=== PATIENT | female | born 2000 | race Caucasian/White ===

== ENCOUNTER 2020-01-02 13:27 | Observation (INO) | payer MEDICARE, MEDICAID, SELFPAY ==
[2020-01-02 13:46] VITALS: BP 114/78; PULSE 109
[2020-01-02 14:00] VITALS: BMI 26.2
[2020-01-02 14:01] VITALS: BP 117/77; PULSE 111
--- NOTE | 2020-01-02 15:03 | OBADM ---
This patient, Soni Alvarez, admitted to the OB room Labor/Delivery/Recovery 103 for observation. Patient/family oriented to hospital policies and general routines including ID bracelet, bed and alarms, visiting hours, pain management, procedures, bathroom and other care routines, personal items, smoking policy, room service/diet, and visiting hours. Patient/Family are encouraged to report perceived risks to care and to ask questions if they do not understand what they are told or what they should do.
--- NOTE | 2020-01-09 18:33 | PM.OBTRLD ---
OB - Triage/Final Diagnosis Visit Information Comments/Additional reasons for admission: FHT reassuring, rupture of membranes ruled out. pt discharged home in stable condition Final Diagnosis (1) Vaginal discharge during in third trimester: Code(s): O26.893 - Other specified related conditions, third trimester; N89.8 - Other specified noninflammatory disorders of vagina Status: Acute
== END 2020-01-02 14:50 | disposition home or self-care (01) ==
PROVIDERS: Admitting Provider Obstetrics & Gynecology; PCP Physician Assistant; Visit Provider Obstetrics & Gynecology
DX: O26.893 Other specified pregnancy related conditions, third trimester (principal); N89.8 Other specified noninflammatory disorders of vagina; Z3A.37 37 weeks gestation of pregnancy
CPT/HCPCS: 84112; G0378; G0379

== ENCOUNTER 2020-01-10 17:52 | Inpatient (IN) | payer MEDICARE, MEDICAID, SELFPAY ==
[2020-01-10] VITALS (21 sets, daily range): BP systolic 81–128; BP diastolic 56–91; PULSE 75–109; TEMP 37.3
--- NOTE | 2020-01-10 18:26 | LDADM ---
This patient, Soni Alvarez, was admitted to Labor/Delivery/Recovery 108 on 01/10/20 at 17:52. Plans for labor, pain management and were discussed with patient. Patient/family oriented to hospital policies and general routines including ID bracelet, bed and alarms, visiting hours, pain management, procedures, bathroom and other care routines, personal items, smoking policy, room service/diet and guest tray routines, infant security routines, and visiting hours. Patient/Family are encouraged to report perceived risks to care and to ask questions if they do not understand what they are told or what they should do. See OBIX for further documentation.
--- NOTE | 2020-01-10 19:06 | PM.IMHP ---
H&P: HPI History of Present Illness Chief complaint: Induction of Labor Narrative: Soni Alvarez is a 19yo @ 39.0wks who presents for elective induction of labor. Patients prior delivery was of a male weighing 8lb 14oz. She reports continued contractions for the last week. She reports good movement. No vaginal bleeding or leakage of fluid. Her is complicated by asthma, Rh negative, and bipolar disorder on zoloft. Review of Systems Constitutional: Constitutional: Denies body ache(s), Denies chills and Denies fatigue Cardiovascular: Cardiovascular: Denies chest pain Respiratory: Respiratory: Denies cough and Denies dyspnea Gastrointestinal: Gastrointestinal: Denies nausea and Denies vomiting Genitourinary: Genitourinary: Reports pelvic pain Musculoskeletal: Musculoskeletal: Reports back pain and Denies arthralgias Neurologic: Denies headache(s) Psychiatric: Psychiatric: Reports no additional psychiatric complaints [facility] Family History Family History Mother Epilepsy Heart murmur Atrial fibrillation Cerebrovascular accident Father Lung cancer Other Asthma Development delay Social History Social History Smoking status: Never smoker Second hand tobacco smoke exposure: No Substance use: never Gender identity (if verbalized by the patient): Female Spiritual care concerns: No Meds Home Medications and Allergies Home Medications Medication Instructions Recorded Confirmed Type albuterol sulfate [Ventolin HFA] INHALATION PRN 01/10/20 History Allergies Allergy/AdvReac Type Severity Reaction Status Date / Time raspberry AdvReac Rash Verified 01/10/20 19:13 Vital Signs Vital Signs - 24 hr 01/10/20 19:03 01/10/20 19:05 Temperature 37.3 C Pulse Rate 89 Blood Pressure 111/73 Exam Const: General: comfortable and no acute distress Resp: Effort & Inspection: normal respiratory effort Cardio: Rate: regular rate GI: GI Palp: Yes Soft to palpation : Other: Cervix: 2/50/-3 Membranes: intact FHT: 150's/mod hanna/ + accels/ no decels - category 1 [place]: ctx's q 3-5min Psych: Mental Status: mental status grossly normal Affect: normal affect Assessment and Plan Assessment and plan (1) : Code(s): Z34.90 - Encounter for supervision of normal , unspecified, unspecified trimester Status: Acute Assessment and Plan: - Admit to L&D for elective induction of labor - heart tones reassuring; continuous monitoring - Will start pitocin augmentation per protocol - Anesthesia PRN pain - GBS negative; ppx not indicated
[2020-01-10 19:14] LABS: Basophils Percent Auto 0.2 % (0.2-1.2); Eosinophils Percent Auto 0.3 % (0-4.4); Hematocrit 38.4 % (37.0-47.0); Hemoglobin 12.5 g/dL (12.0-15.0); Immature Granulocyte Absolute 0.02 K/mm3 (0.00-0.031); Immature Granulocyte Percent A 0.3 % (0-0.5); Lymphocytes Absolute Auto 2.26 K/mm3 (0.9-3.2); Lymphocytes Percent Auto 37.6 % (18.3-44.2); Mean Corpuscular HGB Conc 32.6 g/dl (32-36); Mean Corpuscular Hemoglobin 27.4 pg (26-34); Mean Platelet Volume 12.2 fl (7.4-10.4); Monocytes Absolute Auto 0.3 K/mm3 (0.1-0.6); Monocytes Percent Auto 5.3 % (2.6-8.5); Neutrophils Absolute Auto 3.4 K/mm3 (1.3-6.7); Neutrophils Percent Auto 56.3 % (45.5-73.1); Platelet Count Result 149 k/mm3 (150-375); Red Blood Count 4.57 M/mm3 (4.2-5.4)
[2020-01-10] MEDS: LACTATED RINGERS 1,000 ML 125 ML IV CONT (19:28)
[2020-01-10] MEDS: OXYTOCIN 30 UNITS/NS 500 ML 30 UNITS/500 ML BAG IV CONT (19:28)
[2020-01-10 20:06] LABS: HIV 1/2 Ab P24 Ag Result Negative (Negative)
[2020-01-11] VITALS (43 sets, daily range): BP systolic 89–130; BP diastolic 56–84; PULSE 56–101; RESP 15–16; TEMP 36.7–37.1; O2SAT 96–100
[2020-01-11] MEDS: ONDANSETRON INJ 4 MG/2 ML VIAL IV PUSH (02:24)
[2020-01-11] MEDS: LACTATED RINGERS 1,000 ML 125 ML IV CONT (05:48)
--- NOTE | 2020-01-11 06:34 | PC.NURSE ---
0430- pt came in c/o contractions every 5-7 minutes. pt states that she is scheduled for a repeat c/s 01/25/20. cervical exam , membranes intact. pt states that since she has gotten here the contractions have subsided.
--- NOTE | 2020-01-11 06:38 | PM.OBPRVD ---
OB - Delivery Note Procedure Delivery date: 01/11/20 Procedure: Soni progressed to complete dilation and began pushing. She delivered head over intact perineum. shoulder and body delivered without complications. She delivered a female , weight 7lb 8oz, 20in long, apgars 9/9. The baby was immediately placed skin to skin and stimulated. The cord was clamped and cut. The baby had spontaneous cry. A segment of the cord was collected for cord gases. The remaining cord blood was collected for typing. The placenta delivered without complications with gentle traction on the cord with pitocin running. The fundus was then palpated to be firm and minimal bleeding was noted. The cervix, vagina, and perineum were inspected and no lacerations were noted. Sponge, lap, and instrument counts were correct at the end of the delivery. Mom and baby were left bonding in the delivery suite. events: Rh Incompatibility Intrapartal events: None Induction method: per pitocin protocol Delivery monitor: external FHT and external uterine Route of delivery: Laceration description: None Specimen: No Estimated blood loss (mL): 150 Anesthesia type: None Disposition: floor Baby Date of : 01/11/20 Time of : 06:24 Weeks of gestation at delivery: 39 Weight (pounds): 7 Weight (ounces): 8 presentation: vertex Placenta delivery description: Expressed cord vessel description: Nuchal Cord, Loose and Around Body x1 score one minute: 9 score five minutes: 9
[2020-01-11] MEDS: OXYTOCIN 30 UNITS/NS 500 ML 30 UNITS/500 ML BAG 125 UNITS IV CONT (06:54)
[2020-01-11] MEDS: IBUPROFEN 600 MG TABLET PO (07:52)
[2020-01-11] MEDS: WITCH HAZEL 40 PADS 1 PAD TOPICAL (07:53)
[2020-01-11] MEDS: BENZOCAINE 20% AER SPR (*SP) 56 GM CAN 1 SPRAY TOPICAL (07:53)
[2020-01-11] MEDS: IBUPROFEN SUSPENSION 200 MG/10 ML UDC 600 MG PO ×2 (08:37→15:30)
[2020-01-11 09:29] LABS: Rapid Plasma Reagin Non-Reactive (NonReactive)
--- NOTE | 2020-01-11 11:15 | PC.NURSE ---
Mother requests assist with . Mother states she bottle fed first child and wishes to breast and bottle feed this . Mother bottle fed first feeding. Reviewed feeding cues, frequencies, duration of feedings, feeding elimination flow sheet, and signs of adequate intake. Demonstrated stimulation techniques to wake for feeding. Assisted with to breast. Reviewed positioning/alignment in cross cradle, holding breast in U hold and guided asymmetrical latch on. Discussed rational for each. Several attempts before infant was able to latch correctly. nursed eagerly, with steady draws and frequent swallowing noted. Reviewed signs of a correct latch, effective nursing and suck swallow ratio. Advised to stimulate infant with long pausing noted to keep awake and nursing effectively for increased intake and mother's comfort. was able to maintain latch without discomfort to mother. Nipple care reviewed. Instructed mother to call out for RN assistance if she is unable to latch infant for feeding or she has discomfort with nursing. Instructed feeding should be initiated three hours from start of last feeding or if feeding cues are noted before. Mother voiced understanding of information shared.
--- NOTE | 2020-01-11 12:47 | PC.NURSE ---
0907-Patient transferred to post room #291 via wheelchair. Support person present. Oriented to unit, room, information board, rooming in, admission packet and security measures. Patient verbalizes understanding.
--- NOTE | 2020-01-11 14:09 | PCCCNOTE ---
Care Coordination Note: Pt. referred to SS for possible financial needs and intellectual disability. Met with pt. and her mother at bedside. Pt. plans to return home with her mother and three year old son. FOB and mother are not together anymore. Pt. reports they have some clothes, diapers, bassinet, and carseat for baby. They inquired about a breast pump and RN will check with travel sales consultant. Provided pt. and grandmother with list of community resources and that [employer] can also sometimes help with clothing. Pt. is setup with [facility]. Pt. reports ability to care for infant and has been raising son. Grandmother plans to be there to help as needed. Pt.'s sister will pick them up when discharged and pt. thinks it will be tomorrow evening. No further SS needs identified.
--- NOTE | 2020-01-11 14:25 | PC.NURSE ---
Mother called out for assist with feeding. Demonstrated stimulation techniques to wake for feeding. Assisted with to breast. Reviewed positioning/alignment, holding breast and asymmetrical latch on. Infant was able to latch correctly, with max. assistance. Infant nursed eagerly, with steady draws and frequent swallowing noted. Reviewed signs of a correct latch, effective nursing and suck swallow ratio. was able to maintain latch without discomfort to mother. Nipple care reviewed. Advised to stimulate to keep awake and nursing effectively. Instructed mother to call out for RN assistance if she is unable to latch infant for feeding or she has discomfort with nursing. Instructed feeding should be initiated three hours from start of last feeding or if feeding cues are noted before. Mother voiced understanding of information shared.
[2020-01-12 05:29] LABS: Hematocrit 36.3 % (37.0-47.0); Hemoglobin 11.7 g/dL (12.0-15.0)
[2020-01-12] MEDS: IBUPROFEN SUSPENSION 200 MG/10 ML UDC 600 MG PO (07:40)
[2020-01-12] MEDS: TETANUS,DIPHTHERIA,AC PERTUSSIS ADULT 0.5 ML (ADACEL) IM (07:59)
[2020-01-12 08:20] VITALS: BP 103/64; PULSE 57; RESP 18; TEMP 36.9; O2SAT 99
--- NOTE | 2020-01-12 08:22 | PM.OBPNVD ---
OB - PN: Subj Subjective Date/time seen: 01/12/20 08:22 Soni is a 19yo now P2002 s/p uncomplicated NVSD on 01/11/20 at 39.1wks. Today, she is doing well. Pain is controlled. Bleeding is decreasing. Tolerating regular diet, no nausea or vomiting. Normal bladder and bowel function. She reports that her mood is good; does not want to take the prescribed antidepressant. Tanja is doing well. She desires to be discharged home today. OB - PN: Obj Data Labs CBC & Chem 7: 01/12/20 04:41 Labs: Laboratory Results - last 24 hr 01/10/20 01/12/20 01/12/20 19:04 04:41 04:41 Hgb 11.7 L Hct 36.3 L RPR Non-reactive Blood Type A Negative Antibody Screen Negative Screen Negative Baby's Blood Type O pos Baby's МАРИНА Negative Doses of RhIg Required 1 OB - PN A/P Plan day: 1 Plan: routine care and discharge home Comments: - meeting all milestones - pt desires to be discharged home, ok to go home today - pelvic rest. fever, bleeding, HTN return precautions. take medications as prescribed - Recommend she takes Zoloft (previously prescribed by Dr. Sanchez); pts mother will keep a close eye on patient and call if concerned. - F/u in 4 weeks Time Spent With Patient Time: Total time spent is greater than 50% in coordination of care (as documented) at patient's floor/unit and/or counseling patient: Review of Systems Constitutional: Constitutional: Denies body ache(s), Denies chills and Denies headache(s) Cardiovascular: Cardiovascular: Denies rapid heart rate Respiratory: Respiratory: Denies cough and Denies dyspnea Gastrointestinal: Gastrointestinal: Denies abdominal pain, Denies constipation, Denies nausea and Denies vomiting Genitourinary: Genitourinary: Denies pelvic pain Neurologic: Denies headache(s) Exam Const: General: comfortable, no acute distress, alert and awake Orientation/consciousness: patient oriented x3 Resp: Effort & Inspection: normal respiratory effort Auscultation: clear to auscultation bilaterally Cardio: Rate: regular rate GI: Auscultation: normal bowel sounds Other: fundus firm below the umbilicus Psych: Appearance: grossly normal Attitude: cooperative
--- NOTE | 2020-01-12 11:10 | PC.NURSE ---
Mother states she will not formula feed.
[2020-01-12] MEDS: RHO(D) IMMUNE GLOBULIN 300 MCG SYRINGE IM (13:58)
--- NOTE | 2020-01-12 15:41 | PC.NURSE ---
Patient was given the opportunity to view the discharge video Mother & Baby Care, The First Two Weeks and to ask questions. Patient declined viewing the video and has been given the mother/baby guide for home reference.
[2020-01-13 10:22] VITALS: BP 112/72; PULSE 75; RESP 18; TEMP 36.6
--- NOTE | 2020-01-19 09:31 | P.PCNOB_ITS ---
OB - Delivery Note Procedure events: Rh Incompatibility Intrapartal events: None Laceration description: None Estimated blood loss (mL): 150 Anesthesia type: None Diamond Baby Date of : 01/11/20 Time of : 06:24 Weeks of gestation at delivery: 39 Weight (pounds): 7 Weight (ounces): 8 presentation: vertex Placenta delivery description: Expressed score one minute: 9 score five minutes: 9
--- NOTE | 2020-01-19 09:32 | PM.OBDSVD ---
DS: Diagnosis Admitting Diagnosis Admitting Diagnosis: Encounter for supervision of normal , unspecified, third trimester Discharge Diagnosis (1) : Code(s): Z34.90 - Encounter for supervision of normal , unspecified, unspecified trimester Status: Acute OB - DS: Summary OB Procedures : None OB Procedures Intrapartum: Spontaneous Vag Delivery OB Procedures: : None Peripartum Data Infant Delivery Method: Natural Vaginal Laceration description: None complications: none 1: Gender: Female Disposition of : home Status at Discharge Functional status at discharge: independent ambulation Overall status at discharge: patient is back to baseline Time Spent with Patient Time attestation: Total time spent providing and/or coordinating discharge services: Exam Const: General: comfortable and no acute distress Resp: Effort & Inspection: normal respiratory effort Cardio: Rate: regular rate GI: GI Palp: Yes Soft to palpation Auscultation: normal bowel sounds : External Female Exam: normal external appearance Other: normal lochia, fundus firm below umbilicus Psych: Appearance: grossly normal Discharge Plan Discharge Attending physician on discharge: Cora Zuniga Discharging Clinician: Cora Zuniga Anticipated Discharge Date/Time: 01/12/20 12:00 Patient Disposition: Home, Self-Care Activity: pelvic rest Diet: regular Discharge Instructions: Education: Mom and Baby Guide Given to: Mother Follow-Up: Call your delivering provider's office for an appointment to be seen in: 4 Weeks Mom and baby should come to the [facility] for the follow-up appointment. Appointment Date/Time: Monday, January 13, 2020 at 10:00 am What to expect at your follow-up visit: Blood Pressure Check Physical Assessment Call [phone] if you are unable to keep your appointment time. BREAST CARE: 1. Wear a snug supportive bra. Bottle Feeding: A. May apply ice packs EPISIOTOMY/PERINEAL CARE: 1. Until bleeding stops, use your sonya bottle after urinating 2. Change your pad frequently throughout the day 3. You may take sitz baths several times a day (fill your bathtub with warm water and soak for 20 minutes.) Do NOT bathe in the water 4. No tub baths until seen by your physician - You may shower ACTIVITY: 1. Rest as much as possible. 2. Do not exercise or lift anything heavier than your baby (such as laundry or other children.) 3. Avoid stairs or driving as much as possible. 4. Do not put anything into the vagina. No douching, tampons, or sexual activity until seen by physician. NOTIFY PHYSICIAN IF YOU HAVE ANY QUESTIONS OR IF ANY OF THE FOLLOWING SYMPTOMS OCCUR: 1. If your perineum becomes red, swollen, or more painful than what you have experienced in the hospital. 2. If your vaginal bleeding becomes foul smelling. 3. If your vaginal bleeding becomes more heavy than a period or if your bleeding changes from pink to bright red. However, you may pass an occasional walnut-sized clot once or twice for the first week . 4. If you experience a sharp, shooting pain in you calves. DIET: 1. Eat regular, well-balanced meals. 2. Drink plenty of fluids daily. If , drink to thirst. Stand Alone Forms: General Discharge Information Follow-up/Referrals: Cora Zuniga MD [Physician] - Discharge Medications: New acetaminophen [Mapap (acetaminophen)] 325 mg Tablet 650 mg PO Q6H PRN (Reason: Mild Pain (1-3) Or Headache) 30 Days Qty: 60 RF: 0 ibuprofen 100 mg/5 mL Suspension 800 mg PO Q8H PRN (Reason: Cramping) 10 Days Qty: 1000 RF: 0 albuterol sulfate [Proventil HFA] 90 mcg/actuation Hfa Aerosol Inhaler 2 puff inhalation QIDRT PRN (Reason: Shortness Of Breath Or Wheezing) 30 Days Qty: 1 RF: 0 Continued albuterol sulfate [Ve
== END 2020-01-12 16:30 | disposition home or self-care (01) | DRG 807 ==
LOC: ANHLDR 17:59 → ANHOB2 01-11 09:14
PROVIDERS: Admitting Provider Obstetrics & Gynecology; PCP Physician Assistant; Visit Provider Obstetrics & Gynecology
DX: O36.0930 Maternal care for other rhesus isoimmunization, third trimester, not applicable or unspecified (principal); Z37.0 Single live birth; Z3A.39 39 weeks gestation of pregnancy; O69.82X0 Labor and delivery complicated by other cord entanglement, without compression, not applicable or unspecified; O99.52 Diseases of the respiratory system complicating childbirth; J45.909 Unspecified asthma, uncomplicated; O99.344 Other mental disorders complicating childbirth; F31.9 Bipolar disorder, unspecified
CPT/HCPCS: 36415; 85014; 85018; 85025; 86592; 86703; 86850; 86900; 86901; 90384; 90715; A9270; G0432; J2405; J2590; J2790; J3010; J7120

== ENCOUNTER 2023-05-20 19:21 | Emergency (ER) | payer OTHER, SELFPAY ==
--- NOTE | ~2023-05-20 | US_ITS ---
US abdomen limited 05/20/2023 20:01 Indication: Right lower quadrant pain Procedure: High-resolution Limited ultrasound of the right lower abdomen Comparison: Ultrasound dated 04/23/2023 Findings: Normal heterogeneous soft tissues. No focal solid or cystic mass. The appendix is not visua lized. Impression: 1: Normal limited soft tissue ultrasound of the right lower abdomen. Appendix not visualized. Reviewed, dictated and finalized at location A. Impression: 1: Normal limited soft tissue ultrasound of the right lower abdomen. Appendix n ot visualized.
[2023-05-20 19:39] VITALS: BP 118/68; PULSE 97; RESP 14; TEMP 36.8; O2SAT 98
[2023-05-20] MEDS: SODIUM CHLORIDE 0.9% IV 1,000 ML 999 ML IV CONT (22:11)
[2023-05-20 22:47] LABS: Appearance Urine Cloudy (Clear); Bacteria Urine 1+ /hpf; Bilirubin Urine Negative (Negative); Blood Urine Negative (Negative); Color Urine Yellow (Yellow); Glucose Urine UA Negative (Negative); Ketones Urine Negative (Negative); Leukocyte Esterase Ur 2+ LEU/UL (Negative); Nitrate Urine Negative (Negative); Non Pathogenic Casts 0-2; Protein Urine Negative (Negative); RBC Urine 0-2 /hpf (0-2); Squamous Epithelial Cell Urine Moderate /hpf (Few); Urobilinogen Urine 0.2 mg/dL (<2.0); pH Urine 7.5 (5.0-9.0)
[2023-05-20 22:51] LABS: Basophils Percent Auto 0.2 % (0.2-1.2); Eosinophils Absolute Auto 0.1 K/mm3 (0-0.3); Eosinophils Percent Auto 0.8 % (0-4.4); Hematocrit 35.1 % (37.0-47.0); Hemoglobin 11.6 g/dL (12.0-15.0); Immature Granulocyte Absolute 0.06 K/mm3 (0.00-0.031); Immature Granulocyte Percent A 0.5 % (0-0.5); Lymphocytes Absolute Auto 2.38 K/mm3 (0.9-3.2); Lymphocytes Percent Auto 18.1 % (18.3-44.2); Mean Corpuscular Hemoglobin 29.9 pg (26-34); Mean Corpuscular Volume 90.5 fl (80-100); Mean Platelet Volume 10.3 fl (7.4-10.4); Monocytes Absolute Auto 0.7 K/mm3 (0.1-0.6); Monocytes Percent Auto 5.1 % (2.6-8.5); Neutrophils Absolute Auto 9.9 K/mm3 (1.3-6.7); Neutrophils Percent Auto 75.3 % (45.5-73.1); Platelet Count Result 202 k/mm3 (150-375); Red Blood Count 3.88 M/mm3 (4.2-5.4); Red Cell Distribution Width 13.1 % (11.5-14.5); White Blood Count 13.2 K/mm3 (4.5-10.0)
--- NOTE | 2023-05-20 22:51 | ED.GENADULT ---
HPI - General Adult General Chief complaint: Abdominal Pain Stated complaint: abd pain Time Seen by Provider: 05/20/23 21:34 History of Present Illness HPI narrative: Patient is a 22-year-old female that presents the emergency department with chief complaint of abdominal pain. Patient reports that she is currently 19 weeks and reports that she had pain in her right lower quadrant and right flank area patient states this started yesterday reports that she called her OB today and they told her to come to the emergency department to be evaluated for possible appendicitis patient states that since she has been here in the emergency department her pain is improved patient denies urinary symptoms denies vaginal discharge or vaginal bleeding Related Data Home Medications Medication Instructions Recorded Confirmed pyridoxine (vitamin B6) 25 mg 25 mg PO DAILY 04/14/23 05/12/23 tablet doxylamine succinate 25 mg tablet 25 mg PO QHS PRN 05/12/23 05/12/23 (Unisom (doxylamine)) Allergies Allergy/AdvReac Type Severity Reaction Status Date / Time Penicillins Allergy Severe Hives Verified 05/20/23 19:45 raspberry AdvReac Rash Verified 05/20/23 19:45 Review of Systems Review of Systems: A 10 system review of systems was completed on the patient and is negative except for what is stated in the HPI. Nursing and ancillary documentation was reviewed. [facility] Past Medical History Medical History Anxiety Asthma Depression Surgical History Surgical History H/O eye surgery History of cholecystectomy Family History Family History Mother Epilepsy Heart murmur Atrial fibrillation Cerebrovascular accident Father Lung cancer Other Asthma Development delay Social History Social History Smoking status: Never smoker Second hand tobacco smoke exposure: No Alcohol intake: never Substance use: never Lack of Transportation: No Lack of Food: Never True Current Housing: I Have Housing Concerned About Future Housing: No Difficulty Paying Gas/Electric Bills: No Difficulty Paying for Meds: No Currently Unemployed: No Education: High School Diploma/GED Living arrangements: with family Occupation/Education: unemployed Additional occupation/education comments: [employer] Gender identity (if verbalized by the patient): Female Sexual Orientation (if Verbalized by the Patient): Straight or Heterosexual Spiritual care concerns: No Exam Narrative: GENERAL: Well-appearing, well-nourished, and in no acute distress. HEAD: Normocephalic, atraumatic. EYES: PERRLA and EOMI. ENT: Nares clear, no rhinorrhea or epistaxis. Mucous membranes moist. NECK: Supple. CHEST: Clear to auscultation. No respiratory distress. HEART: Regular rate and rhythm. No murmur heard. Normal peripheral pulses. ABDOMEN: Soft, minimal tenderness to palpation, no guarding, no rebound, nondistended, normal active bowel sounds. EXTREMITIES: Normal range of motion. No edema. SKIN: Warm, dry, no rash. NEURO: No focal deficits. Alert and oriented x3. PSYCH: Normal mood and affect. Course Vital Signs Vital signs: Vital Signs Temperature 36.8 C 05/20/23 19:39 Pulse Rate 97 05/20/23 19:39 Respiratory Rate 14 05/20/23 19:39 Blood Pressure 118/68 05/20/23 19:39 Pulse Oximetry 98 05/20/23 19:39 Oxygen Delivery Room Air 05/20/23 19:39 Temperature 36.8 C 05/20/23 19:39 Pulse Rate 97 05/20/23 19:39 Respiratory Rate 14 05/20/23 19:39 Blood Pressure 118/68 05/20/23 19:39 Pulse Oximetry 98 05/20/23 19:39 Oxygen Delivery Room Air 05/20/23 19:39 Medical Decision Making MDM Narrative Medical decision making narrative: Diff
[2023-05-20 22:55] LABS: Alanine Aminotransferase 11 U/L (6-35); Albumin Level 3.6 g/dL (3.5-5.1); Alkaline Phosphatase 49 U/L (38-126); Anion Gap 8 mmol/L (8-16); Aspartate Amino Transferase 22 U/L (14-36); Bilirubin,Total 0.3 mg/dL (0.2-1.3); Blood Urea Nitrogen 6 mg/dL (7-17); Calcium 8.3 mg/dL (8.4-10.2); Carbon Dioxide 19 mmol/L (22-30); Chloride 108 mmol/L (98-107); Estimated Glomerular Filt Rate > 60; Glucose 85 mg/dL (65-110); Lipase 28 U/L (23-300); Potassium 3.3 mmol/L (3.4-5.0); Sodium 135 mmol/L (137-145)
[2023-05-20 22:58] LABS: Add Urine Microscopic? YES
== END 2023-05-20 23:44 | disposition home or self-care (01) ==
PROVIDERS: Emergency Provider Emergency Medicine; PCP Physician Assistant
DX: O23.42 Unspecified infection of urinary tract in pregnancy, second trimester (principal); N39.0 Urinary tract infection, site not specified; O26.892 Other specified pregnancy related conditions, second trimester; R10.31 Right lower quadrant pain; O99.512 Diseases of the respiratory system complicating pregnancy, second trimester; J45.909 Unspecified asthma, uncomplicated; Z90.49 Acquired absence of other specified parts of digestive tract; Z3A.19 19 weeks gestation of pregnancy
CPT/HCPCS: 36415; 76705; 80053; 81001; 83690; 85025; 87086; 87088; 96360; 96361; 99284; J7030

== ENCOUNTER 2023-07-19 09:55 | Outpatient (RCR) | payer OTHER, SELFPAY ==
[2023-07-19 12:11] LABS: Hemoglobin 11.5 g/dL (12.0-15.0); Mean Corpuscular HGB Conc 32.9 g/dl (32-36); Mean Corpuscular Hemoglobin 30.2 pg (26-34); Mean Corpuscular Volume 91.9 fl (80-100); Platelet Count Result 168 k/mm3 (150-375); Red Blood Count 3.81 M/mm3 (4.2-5.4); Red Cell Distribution Width 13.2 % (11.5-14.5); White Blood Count 8.9 K/mm3 (4.5-10.0)
[2023-07-19 12:12] LABS: Basophils Percent Auto 0.2 % (0.2-1.2); Eosinophils Percent Auto 0.3 % (0-4.4); Immature Granulocyte Absolute 0.09 K/mm3 (0.00-0.031); Lymphocytes Absolute Auto 1.69 K/mm3 (0.9-3.2); Mean Platelet Volume 9.8 fl (7.4-10.4); Monocytes Absolute Auto 0.5 K/mm3 (0.1-0.6); Monocytes Percent Auto 5.9 % (2.6-8.5); Neutrophils Absolute Auto 6.6 K/mm3 (1.3-6.7); Neutrophils Percent Auto 73.6 % (45.5-73.1)
[2023-07-19 12:22] LABS: Glucose 1 Hour PP 50gm Dose 113 mg/dL
[2023-07-19 13:04] LABS: HIV 1/2 Ab P24 Ag Result Negative (Negative)
[2023-07-20] MEDS: RHO(D) IMMUNE GLOBULIN 300 MCG/2 ML SYRINGE IM (09:56)
== END 2023-10-17 23:59 | disposition home or self-care (01) ==
LOC: ANHLAB 09:55
PROVIDERS: PCP Physician Assistant; Visit Provider Obstetrics & Gynecology
DX: Z11.4 Encounter for screening for human immunodeficiency virus [HIV] (principal); Z29.13 Encounter for prophylactic Rho(D) immune globulin; O36.0190 Maternal care for anti-D [Rh] antibodies, unspecified trimester, not applicable or unspecified; Z3A.00 Weeks of gestation of pregnancy not specified
CPT/HCPCS: 36415; 82947; 85025; 85461; 86703; 86850; 86900; 86901; 90384; 96372; G0432; J2790

== ENCOUNTER 2023-08-11 12:30 | Observation (INO) | payer OTHER, SELFPAY ==
[2023-08-11] VITALS (26 sets, daily range): BP systolic 108–110; BP diastolic 61–66; PULSE 91–131; TEMP 36.2; O2SAT 97–100
[2023-08-11] MEDS: TERBUTALINE SULFATE 1 MG/ML VIAL 0.25 MG SUB-Q ×2 (14:09→15:00)
[2023-08-11 14:35] LABS: Appearance Urine Clear (Clear); Bacteria Urine 1+ /hpf; Bilirubin Urine Negative (Negative); Blood Urine Negative (Negative); Color Urine Yellow (Yellow); Glucose Urine UA Negative (Negative); Ketones Urine 2+ mg/dL (Negative); Leukocyte Esterase Ur 1+ LEU/UL (Negative); Nitrate Urine Negative (Negative); Non Pathogenic Casts 0-2; Protein Urine Negative (Negative); RBC Urine 0-2 /hpf (0-2); Squamous Epithelial Cell Urine Moderate /hpf (Few); pH Urine 7.5 (5.0-9.0)
--- NOTE | 2023-08-11 14:35 | OBADM ---
This patient, Soni Alvarez, admitted to the OB room OB Post 113 for observation. Patient/family oriented to hospital policies and general routines including ID bracelet, bed and alarms, visiting hours, pain management, procedures, bathroom and other care routines, personal items, smoking policy, room service/diet, and visiting hours. Patient/Family are encouraged to report perceived risks to care and to ask questions if they do not understand what they are told or what they should do.
[2023-08-11 14:40] LABS: Add Urine Microscopic? YES
--- NOTE | 2023-08-12 10:01 | PM.OBTRLD ---
OB - Triage/Final Diagnosis Visit Information Reason for evaluation: threatened labor Comments/Additional reasons for admission: I have assessed the risk for this patient, Soni Alvarez, and determined that she would benefit from observation care. Evaluation Laboratory results: Laboratory Tests 08/11/23 14:14 Urine Color Yellow Urine Appearance Clear Urine pH 7.5 Ur Specific [place] 1.020 Urine Protein Negative Urine Glucose (UA) Negative Urine Ketones 2+ H Ur Blood (Man) Negative Urine Nitrate Negative Urine Bilirubin Negative Urine Urobilinogen 4.0 H Leukocyte Esterase Rfl 1+ H Urine RBC 0-2 Urine WBC 11-20 H Ur Squamous Epith Cells Moderate Urine Bacteria 1+ H Urine Casts 0-2 Vital signs: Vital Signs - 24 hr 08/11/23 12:55 08/11/23 13:00 08/11/23 13:15 Temperature Pulse Rate 92 91 106 H Blood Pressure 110/66 108/61 109/62 Pulse Oximetry 08/11/23 14:09 08/11/23 14:14 08/11/23 14:19 Temperature Pulse Rate Blood Pressure Pulse Oximetry 97 99 99 08/11/23 14:24 08/11/23 14:29 08/11/23 14:34 Temperature Pulse Rate Blood Pressure Pulse Oximetry 100 100 100 08/11/23 14:39 08/11/23 14:44 08/11/23 14:49 Temperature Pulse Rate Blood Pressure Pulse Oximetry 100 100 100 08/11/23 14:54 08/11/23 14:59 08/11/23 15:04 Temperature Pulse Rate Blood Pressure Pulse Oximetry 100 99 99 08/11/23 15:09 08/11/23 15:14 08/11/23 15:19 Temperature Pulse Rate Blood Pressure Pulse Oximetry 100 100 100 08/11/23 15:24 08/11/23 15:29 08/11/23 15:34 Temperature Pulse Rate Blood Pressure Pulse Oximetry 100 100 100 08/11/23 15:39 08/11/23 15:44 08/11/23 15:49 Temperature Pulse Rate Blood Pressure Pulse Oximetry 98 99 99 08/11/23 15:54 08/11/23 14:00 Temperature 97.2 F L Pulse Rate Blood Pressure Pulse Oximetry 99
== END 2023-08-11 16:10 | disposition home or self-care (01) ==
PROVIDERS: Admitting Provider Obstetrics & Gynecology; PCP Physician Assistant; Visit Provider Obstetrics & Gynecology
DX: O47.03 False labor before 37 completed weeks of gestation, third trimester (principal); Z3A.32 32 weeks gestation of pregnancy
CPT/HCPCS: 81001; 84112; 87086; 96372; G0378; J3105

== ENCOUNTER 2023-09-07 10:45 | Observation (INO) | payer OTHER, SELFPAY ==
[2023-09-07] VITALS (10 sets, daily range): BP systolic 109–129; BP diastolic 56–75; PULSE 97–114; RESP 18; TEMP 36.6–37.1; BMI 27.5
--- NOTE | 2023-09-07 14:32 | PC.NURSE ---
While doing pt's discharge instructions she requested FLU and Tdap vaccines. States Dr. Zuniga told her in the office today that she needed to get it today or she would need to wait until after she delivered to get them. Orders received. Also having pt signs consents and scheduling preadmission as a phone interview.
[2023-09-07] MEDS: TETANUS,DIPHTHERIA,AC PERTUSSIS ADULT (0.5 ML) BOOSTRIX IM (15:01)
--- NOTE | 2023-09-08 08:12 | PM.OBTRLD ---
OB - Triage/Final Diagnosis Visit Information Reason for evaluation: threatened labor Comments/Additional reasons for admission: I have assessed the risk for this patient, Soni Alvarez, and determined that she would benefit from observation care. Evaluation Vital signs: Vital Signs - 24 hr 09/07/23 11:17 09/07/23 11:30 09/07/23 11:45 Temperature 98.7 F Pulse Rate 100 103 H 97 Respiratory Rate 18 Blood Pressure 129/68 110/69 112/68 Oxygen Delivery 09/07/23 12:00 09/07/23 12:15 09/07/23 12:30 Temperature Pulse Rate 100 102 H 104 H Respiratory Rate Blood Pressure 111/72 112/71 111/68 Oxygen Delivery 09/07/23 12:45 09/07/23 13:00 09/07/23 13:15 Temperature Pulse Rate 104 H 112 H 106 H Respiratory Rate Blood Pressure 109/56 L 125/75 114/70 Oxygen Delivery 09/07/23 13:30 09/07/23 11:40 Temperature 97.8 F Pulse Rate 114 H Respiratory Rate 18 Blood Pressure 116/71 Oxygen Delivery Room Air
== END 2023-09-07 15:05 | disposition home or self-care (01) ==
PROVIDERS: Admitting Provider Obstetrics & Gynecology; PCP Physician Assistant; Visit Provider Obstetrics & Gynecology
DX: O47.03 False labor before 37 completed weeks of gestation, third trimester (principal); Z3A.36 36 weeks gestation of pregnancy; Z23 Encounter for immunization
CPT/HCPCS: 84112; 90471; 90686; 90715; G0008; G0378; G0379

== ENCOUNTER 2023-09-08 12:54 | Observation (INO) | payer OTHER, SELFPAY ==
[2023-09-08] VITALS (14 sets, daily range): BP systolic 110–131; BP diastolic 67–94; PULSE 96–114; BMI 27.7
--- NOTE | ~2023-09-08 | US_ITS ---
EXAMINATION: US OB BPP wo non-stress DATE: 09/08/2023 17:40 INDICATION: FHR deceleration . TECHNIQUE: Real-time ultrasound of the pelvis was performed. COMPARISON: None. FINDINGS: There is a single living fetus in vertex presentation, longitudinal lie. The placenta is anterior, m aternal left, and well away from the cervix. heart rate is 135 bpm. The amniotic fluid index is 12.7 cm, which is normal (5th to 95th percentile is 7.7 to 24.9 cm). Biophysical profile performed by the technologist: breathing (30 sec sustained breathing in 30 minutes): 2 out of 2. movement (3 gross body movements in 30 minutes: 2 out of 2. tone (one episode of wimqkby-vgrttpgxu-jtzjsci limb movement): 2 out of 2. Amniotic fluid pocket (2 cm): 2 out of 2. Total score: 8 out of 8. IMPRESSION: Single living fetus in vertex presentation. Biophysical profile 8 out of 8. Normal PAOLO. Reviewed, dictated and finalized at location K. RD CLERK
--- NOTE | 2023-09-08 15:12 | ADMGEN ---
This patient, Soni Alvarez, was admitted to Labor/Delivery/Recovery 105-00. Patient/family oriented to hospital policies and general routines including ID bracelet, bed and alarms, visiting hours, pain management, procedures, bathroom and other care routines, personal items, smoking policy, room service/diet, and visiting hours. Information on how to activate the Rapid Response Team has been discussed. Patient/Family are encouraged to report perceived risks to care and to ask questions if they do not understand what they are told or what they should do.
--- NOTE | 2023-09-08 16:59 | PM.OBTRLD ---
OB - Triage/Final Diagnosis Visit Information Date of evaluation: 09/08/23 Reason for evaluation: threatened labor Comments/Additional reasons for admission: I have assessed the risk for this patient, Soni Alvarez, and determined that she would benefit from observation care. Pt presents for contractions. Patient presented to L&D yesterday for the same complaint. Pt states she was doubled over in pain with contractions at home. Cervix has remained unchanged. Patient's mother is uncomfortable with the patient going home again. Evaluation Baseline heart rate: 150 Variability: Moderate (11-25) monitor accelerations: Present monitor decelerations: Late Cervical dilation (cm): 4 Cervical effacement (%): 60 station: -2 Vital signs: Vital Signs - 24 hr 09/08/23 13:30 09/08/23 13:45 09/08/23 14:00 Pulse Rate 103 H 110 H 101 H Blood Pressure 117/75 114/77 110/74 Oxygen Delivery 09/08/23 14:15 09/08/23 14:31 09/08/23 14:45 Pulse Rate 114 H 110 H 105 H Blood Pressure 118/76 115/94 H 124/72 Oxygen Delivery 09/08/23 15:00 09/08/23 15:15 09/08/23 15:30 Pulse Rate 100 104 H 96 Blood Pressure 122/72 123/75 127/74 Oxygen Delivery 09/08/23 15:45 09/08/23 16:00 09/08/23 16:15 Pulse Rate 104 H 101 H 105 H Blood Pressure 117/67 131/78 121/78 Oxygen Delivery 09/08/23 16:30 09/08/23 16:45 09/08/23 15:10 Pulse Rate 105 H 104 H Blood Pressure 128/76 131/76 Oxygen Delivery Room Air Comments: 23 yo at 36w2d - contractions -pt reports painful contractions at home -cvx 3.5/60/-2, unchanged from monitoring yesterday -saurav Q 7-9 minutes -pt resting comfortably in bed -I had a long conversation with the patient's mother regarding the plan of care. Patient's mother is very upset with the management of this patient. She believes that she would be delivered. She is requesting that the patient have her water broken. Discussed that she is pre term. Discussed risks associated with delivery. Discussed that that is not recommended for augmentation of labor at this gestational age. Patient's mother was very rude. She was aggravated and stated she was unwilling to take the patient home she was discharged. Patient and her mother were offer the opportunity for 2nd opinion another institution they desired. - Will administer betamethasone for lung maturity -BPP ordered for well being given decelerations on monitoring, tracing overall reassuring -Patient given IV fluids with 1 L lactated Ringer's -Plan to recheck cervix at 6:00 p.m. -if no cervical change after 5 hours of observation, patient will be discharged with labor precautions
[2023-09-08] MEDS: ACETAMINOPHEN 500 MG TABLET 1000 MG PO (17:54)
[2023-09-08] MEDS: LACTATED RINGERS 1,000 ML 999 ML IV CONT (17:55)
[2023-09-08] MEDS: BETAMETHASONE SOD PHOS/ACETATE 30 MG/5 ML VIAL 12 MG IM (17:57)
== END 2023-09-08 19:25 | disposition home or self-care (01) ==
PROVIDERS: Admitting Provider Student in an Organized Health Care Education/Training Program; PCP Physician Assistant; Visit Provider Obstetrics & Gynecology
DX: O47.03 False labor before 37 completed weeks of gestation, third trimester (principal); Z3A.36 36 weeks gestation of pregnancy
CPT/HCPCS: 76819; 84112; 96372; A9270; G0378; G0379; J0702; J7120

== ENCOUNTER 2023-09-27 05:10 | Inpatient (IN) | payer OTHER, SELFPAY ==
[2023-09-27] VITALS (55 sets, daily range): BP systolic 103–138; BP diastolic 51–104; PULSE 72–123; RESP 16; TEMP 36.2–37.3; O2SAT 88–100; BMI 27.7
--- NOTE | 2023-09-27 05:32 | LDADM ---
This patient, Soni Alvarez, was admitted to Labor/Delivery/Recovery 104 on 09/27/23 at 05:10. Plans for labor, pain management and were discussed with patient. Patient/family oriented to hospital policies and general routines including ID bracelet, bed and alarms, visiting hours, pain management, procedures, bathroom and other care routines, personal items, smoking policy, room service/diet and guest tray routines, infant security routines, and visiting hours. Patient/Family are encouraged to report perceived risks to care and to ask questions if they do not understand what they are told or what they should do. See OBIX for further documentation.
[2023-09-27] MEDS: LACTATED RINGERS 1,000 ML 125 ML IV CONT ×2 (05:44→11:26)
[2023-09-27] MEDS: OXYTOCIN 30 UNITS/NS 500 ML 30 UNITS/500 ML BAG IV CONT (05:45)
[2023-09-27 05:53] LABS: Basophils Percent Auto 0.2 % (0.2-1.2); Eosinophils Percent Auto 0.3 % (0-4.4); Hematocrit 39.2 % (37.0-47.0); Immature Granulocyte Absolute 0.12 K/mm3 (0.00-0.031); Immature Granulocyte Percent A 1.1 % (0-0.5); Lymphocytes Absolute Auto 2.01 K/mm3 (0.9-3.2); Lymphocytes Percent Auto 19.3 % (18.3-44.2); Mean Corpuscular HGB Conc 33.2 g/dl (32-36); Mean Corpuscular Hemoglobin 30.3 pg (26-34); Mean Corpuscular Volume 91.4 fl (80-100); Monocytes Absolute Auto 0.7 K/mm3 (0.1-0.6); Monocytes Percent Auto 6.5 % (2.6-8.5); Neutrophils Absolute Auto 7.6 K/mm3 (1.3-6.7); Neutrophils Percent Auto 72.6 % (45.5-73.1); Platelet Count Result 160 k/mm3 (150-375); Red Blood Count 4.29 M/mm3 (4.2-5.4); White Blood Count 10.4 K/mm3 (4.5-10.0)
--- NOTE | 2023-09-27 06:06 | WPDANESEPP ---
Anes - Eval Pre Procedure Procedure: labor epidural Date/Time: 09/27/23 06:06 Surgeon: terence Preop Diagnosis: pain during labor Pre Op Diagnosis: IOL Patient Data Age: 23 Gender: F Height: 1.68 m Weight: 78 kg Last Vital Signs Temp 36.6 C 09/27/23 05:42 Pulse 86 09/27/23 06:01 BP 116/71 09/27/23 06:01 O2 Del Method Room Air 09/27/23 05:30 Allergies Allergy/AdvReac Type Severity Reaction Status Date / Time Penicillins Allergy Severe Hives Verified 09/21/23 08:51 raspberry AdvReac Rash Verified 09/21/23 08:51 Home Medications Medication Instructions Recorded Confirmed Type pyridoxine (vitamin B6) 25 mg 25 mg PO DAILY 04/14/23 09/21/23 History tablet albuterol sulfate 90 mcg/actuation 2 puff inhalation Q4H PRN 05/06/23 09/21/23 Rx aerosol inhaler shortness of breath or wheezing #8.5 grams PNV 153-FA 400 mcg-om3 35 mg-dha 1 tablet PO DAILY 09/07/23 09/21/23 History 25 mg-epa 5 mg-fish oil chew tablet ( Gummies) famotidine 20 mg tablet 20 mg PO DAILY 09/07/23 09/21/23 History ferrous sulfate 325 mg (65 mg 325 mg PO HS 09/07/23 09/21/23 History iron) tablet Laboratory Tests 09/27/23 05:25 WBC 10.4 H K/mm3 (4.5-10.0) RBC 4.29 M/mm3 (4.2-5.4) Hgb 13.0 g/dL (12.0-15.0) Hct 39.2 % (37.0-47.0) MCV 91.4 fl (80-100) MCH 30.3 pg (26-34) MCHC 33.2 g/dl (32-36) RDW 13.0 % (11.5-14.5) Plt Count 160 k/mm3 (150-375) MPV 11.0 H fl (7.4-10.4) Immature Gran % (Auto) 1.1 H % (0-0.5) Neut % (Auto) 72.6 % (45.5-73.1) Lymph % (Auto) 19.3 % (18.3-44.2) Reynolds % (Auto) 6.5 % (2.6-8.5) Eos % (Auto) 0.3 % (0-4.4) Baso % (Auto) 0.2 % (0.2-1.2) Lymph # (Auto) 2.01 K/mm3 (0.9-3.2) Reynolds # (Auto) 0.7 H K/mm3 (0.1-0.6) Eos # (Auto) 0.0 K/mm3 (0-0.3) Baso # (Auto) 0.0 K/mm3 (0.0-0.1) Abs Immat Gran (auto) 0.12 H K/mm3 (0.00-0.031) Absolute Neuts (auto) 7.6 H K/mm3 (1.3-6.7) Absolute Nucleated RBC 0.0 K/mm3 (0.0-0.012) Nucleated RBC % 0.0 % (0.0-0.2) RPR Pending Patient hx anesthesia problems: none Family hx anesthesia problems: none Results Review: All pre-operative results and documents have been reviewed as part of the pre-operative evaluation. [facility] Past Medical History Medical History (Updated 09/27/23 @ 06:07 by Marion Mckee CRNA) Anxiety Asthma Depression Developmental delay, borderline Fibromyalgia Migraines, neuralgic Surgical History Surgical History H/O eye surgery History of cholecystectomy Family History Family History Mother Epilepsy Atrial fibrillation Heart murmur Cerebrovascular accident Father Lung cancer Daughter Heart murmur VSD (ventricular septal defect) Son Heart murmur Other Asthma Development delay Social History Social History Smoking status: Never smoker Second hand tobacco smoke exposure: No Alcohol intake: never Substance use: never Lack of Transportation: YES Lack of Food: Never True Current Housing: I Have Housing Concerned About Future Housing: No Difficulty Paying Gas/Electric Bills: No Difficulty Paying for Meds: No Currently Unemployed: No Education: Grade School Difficulty w/ Childcare or Family Care: No Living arrangements: with family Occupation/Education: unemployed Additional occupation/education comments: ON SS Gender identity (if verbalized by the patient): Female Sexual Orientation (if Verbalized by the Patient): Straight or Heterosexual Spiritual care concerns: No Exam Day of Procedure 09/27/23 06:06
[2023-09-27] MEDS: fentaNYL CITRATE INJ (*CRX) 100 MCG/2 ML VIAL 50 MCG IV PUSH (10:42)
[2023-09-27] MEDS: ONDANSETRON INJ 4 MG/2 ML VIAL IV PUSH (11:22)
--- NOTE | 2023-09-27 12:50 | WPDHPUPDATE1 ---
History and Physical Update Update Date/Time: 09/27/23 12:50 History and Physical has been reviewed, including an updated exam of the patient. There are NO changes in the patient's condition. Risks, benefits, and alternatives have been discussed and questions answered. Patient agrees to proceed with procedure.
--- NOTE | 2023-09-27 12:50 | WPDOBADMIT ---
Obstetrics - Admit Note Admission Note: record reviewed. No pertinent additions to the history and/or any subsequent changes in the physical findings that are not consistent with the expected course of the were found. Additions to the history and/or subsequent changes in the physical findings follow. None.
--- NOTE | 2023-09-27 12:52 | P.PCNOB_ITS ---
OB - Vaginal Delivery Note Procedure Delivery date: 09/27/23 Induction method: Per Pitocin Protocol Delivery augmentation: Rupture of Membranes Delivery monitor: External FHT and External Uterine Route of delivery: Episiotomy description: None Laceration Description: None Specimen: No Quantitative Blood Loss (ml): 200 Anesthesia type: Epidural Disposition: Floor Complications: No immediate complications Narrative: Draped usual manner this procedure. Maternal expulsive efforts readily delivered vertex, nuchal cord was noted and was clamped and cut. Red baby was delivered placed on maternal abdomen. Placenta delivered spontaneously. Minimal bleeding and well contracted. This point the procedure was considered terminated with immediate postoperative condition of mother and baby both excellent. [place] Baby Weeks of gestation at delivery: 39 Infant gender: Female presentation: vertex position: Right Occiput Anterior Placenta delivery description: Spontaneous Cord Vessel Description: 3 Vessels, Nuchal Cord and Clamped/Cut AMG Delivery Billing Delivery Delivery: Delivery Charge
[2023-09-27] MEDS: OXYTOCIN 30 UNITS/NS 500 ML 30 UNITS/500 ML BAG 125 UNITS IV CONT (13:17)
[2023-09-27] MEDS: BENZOCAINE 20% AER SPR (*SP) 56 GM CAN 1 SPRAY TOPICAL (14:58)
[2023-09-27] MEDS: WITCH HAZEL 40 PADS 1 PAD TOPICAL (14:58)
--- NOTE | 2023-09-27 16:06 | OBPPTRN ---
1513 Patient transferred to post room #280 via W/C. Support person present. Oriented to unit, room, information board, rooming in, admission packet and security measures. Patient verbalizes understanding.
[2023-09-27 16:17] LABS: Rapid Plasma Reagin Non-Reactive (NonReactive)
[2023-09-28] VITALS: BP 106/76; PULSE 89; RESP 18; TEMP 36.8; O2SAT 99
[2023-09-28 04:54] VITALS: BP 100/71; PULSE 87; RESP 18; TEMP 36.6; O2SAT 100
[2023-09-28] MEDS: BENZOCAINE 20% AER SPR (*SP) 56 GM CAN 1 SPRAY TOPICAL (04:56)
[2023-09-28 04:59] LABS: Hematocrit 34.3 % (37.0-47.0); Hemoglobin 11.5 g/dL (12.0-15.0)
[2023-09-28] MEDS: WITCH HAZEL 40 PADS 1 PAD TOPICAL (05:01)
[2023-09-28 07:49] VITALS: BP 126/86; PULSE 92; RESP 18; TEMP 36.7; O2SAT 96
--- NOTE | 2023-09-28 08:10 | PM.OBDSVD ---
DS: Admitting Diagnosis Discharge Date 09/28/2023 Admitting Diagnosis DS: Discharge Diagnosis Discharge Diagnosis (1) , delivered: Code(s): O80 - Encounter for full-term uncomplicated delivery Status: Acute OB - DS: Summary OB Procedures : None OB Procedures Intrapartum: Spontaneous Vag Delivery OB Procedures: : None Peripartum Data Laceration Description: None Episiotomy description: None Time Spent with Patient Time attestation: Total time spent providing and/or coordinating discharge services: DS: Data Data Completed and Pending Labs on day of discharge: Labs from last 24 hours 09/28/23 09/27/23 04:23 05:25 Hgb 11.5 L Hct 34.3 L RPR Non-reactive Discharge Plan Discharge Discharging Clinician: Endy Sanchez Patient Disposition: Home, Self-Care Activity: as tolerated Diet: as tolerated Patient Instructions: Antibiotic Form Stand Alone Forms: General Discharge Information Follow-up/Referrals: Endy Sanchez MD [Physician] - 3 Weeks Discharge Medications: New ibuprofen 600 mg Tablet 600 mg PO Q6H PRN (Reason: Cramping) Qty: 30 0RF Continued pyridoxine (vitamin B6) 25 mg tablet 25 mg PO DAILY famotidine 20 mg tablet 20 mg PO DAILY Gummies 400 mcg-35 mg- 25 mg-5 mg Tablet,Chewable 1 tablet PO DAILY ferrous sulfate 325 mg (65 mg iron) Tablet 325 mg PO HS albuterol sulfate 90 mcg/actuation HFA aerosol inhaler 2 puff inhalation Q4H PRN (Reason: shortness of breath or wheezing) Qty: 8.5 3RF Date of admission: 09/27/23 05:10 Primary Care Provider: Deng,Nicolas Clark Admitting Provider: Endy Sanchez Attending physician on admission: Endy Sanchez Condition: Stable
--- NOTE | 2023-09-28 08:37 | WPDANLDPN2 ---
Anes-Prog Note L&D Date/Time: 09/28/23 08:37 Comfortable throughout: labor and delivery Neuraxial method: epidural Epidural/Spinal procedure site: clean & non-tender Neuro status: Neuro function grossly intact. Cardiovascular status: normal Respiratory status: normal Airway patency: baseline Mental status: baseline Post-Op hydration status: normal Vital Signs: Last Vital Signs Temp 36.7 C 09/28/23 07:49 Pulse 92 09/28/23 07:49 Resp 18 09/28/23 07:49 BP 126/86 09/28/23 07:49 Pulse Ox 96 09/28/23 07:49 O2 Del Method Room Air 09/27/23 19:30 Pain score (VAS): 10 I/O: Intake & Output 09/27/23 09/28/23 09/28/23 23:59 07:59 15:59 Intake Total 240 Balance 240 Post-procedural complaints: none Patient feedback: Patient satisfied with anesthetic care.
[2023-09-28] MEDS: DOCUSATE SODIUM 100 MG CAPSULE PO (08:38)
[2023-09-28] MEDS: MULTIVIT/MIN/PREN/FOL AC/IRON TABLET 1 TAB PO (08:38)
--- NOTE | 2023-09-28 14:25 | PC.NURSE ---
Patient viewed the discharge video Mother & Baby Care, The First Two Weeks . Patient was given the opportunity and encouraged to ask questions. Patient verbalized understanding of information shared and has been given the mother/baby guide for home reference.
[2023-09-30 11:09] VITALS: BP 100/66; PULSE 82; RESP 18; TEMP 37.3; O2SAT 99
== END 2023-09-28 17:30 | disposition home or self-care (01) | DRG 807 ==
LOC: ANHLDR 05:14 → ANHOB2 15:16
PROVIDERS: Admitting Provider Obstetrics & Gynecology; PCP Physician Assistant; Visit Provider Obstetrics & Gynecology
DX: O69.81X0 Labor and delivery complicated by cord around neck, without compression, not applicable or unspecified (principal); Z37.0 Single live birth; Z3A.39 39 weeks gestation of pregnancy
CPT/HCPCS: 36415; 85014; 85018; 85025; 86592; 86850; 86900; 86901; A9270; J2405; J2590; J2795; J3010; J7120

== ENCOUNTER 2023-10-13 16:13 | Emergency (ER) | payer OTHER, SELFPAY ==
--- NOTE | ~2023-10-13 | US_ITS ---
EXAMINATION: US pelvic complete DATE: 10/13/2023 18:32 INDICATION: hemorrhage. TECHNIQUE: Multiple transabdominal sonographic images of the pelvis were obtained. COMPARISON: None. FINDINGS: The uterus measures 11.2 x 5.4 x 9.1 m. There is no free fluid in the pelvis. The endometrial complex measures 15 mm in thickness. Color Doppler demonstrates a focus of internal vascular flow in the end ometrial complex. The right ovary measures 3.2 x 1.2 x 3.0 cm. The left ovary measures 2.3 x 2.3 x 2. 9 cm. There is normal vascular flow in the ovaries. IMPRESSION: 1. Thickened endometrial complex with internal vascular flow, consistent with retained products of co nception. Reviewed, dictated and finalized at location E. CE ASSISTANT IMPRESSION: 1. Thickened endometrial complex with internal vascular flow, consistent with r etained products of conception.
[2023-10-13 16:15] VITALS: BP 118/75; PULSE 83; RESP 18; TEMP 36.9; O2SAT 100
--- NOTE | 2023-10-13 16:26 | ED.PREGNANCY ---
HPI - General Chief complaint: Vaginal Bleeding Stated complaint: vag bleed, 2 wks Time Seen by Provider: 10/13/23 16:19 Source: patient Limitations: no limitations History of Present Illness HPI Narrative: This is a 23 yo female who is 16 days post after of a female infant. Her ObGyn was Dr Nassar (practice in [place]); implementation consultant ObGyn for the practice Dr Zuniga advised her to present to the ED. Patient states was complicated by earlier labor that had started in July 2023 but was stopped. Delivery was complicated by nucal cord around baby's neck x3 requiring being clamped and cut just immediately prior to delivery but otherwise did not require transfusion. She continued to have some vaginal bleeding after delivery that stopped for 2 days and started again. She started having diarrhea and vomiting today , a few episodes of each that was then followed by some 3/10 severity abdominal pain. No mucosal bleeding/gingival bleeding. No foul smelling vaginal discharge or fevers. She has been changing a pad every 2 hours recently though it is not saturated at the time. Related Data Home Medications Medication Instructions Recorded Confirmed pyridoxine (vitamin B6) 25 mg 25 mg PO DAILY 04/14/23 09/21/23 tablet PNV 153-FA 400 mcg-om3 35 mg-dha 1 tablet PO DAILY 09/07/23 09/21/23 25 mg-epa 5 mg-fish oil chew tablet ( Gummies) famotidine 20 mg tablet 20 mg PO DAILY 09/07/23 09/21/23 ferrous sulfate 325 mg (65 mg 325 mg PO HS 09/07/23 09/21/23 iron) tablet Allergies Allergy/AdvReac Type Severity Reaction Status Date / Time Penicillins Allergy Severe Hives Verified 10/13/23 16:24 raspberry AdvReac Rash Verified 10/13/23 16:24 [facility] Past Medical History Medical History Anxiety Asthma Depression Developmental delay, borderline Fibromyalgia 3 para 3 Migraines, neuralgic Spontaneous vaginal delivery 09/27/2023 Surgical History Surgical History H/O eye surgery History of cholecystectomy Family History Family History Mother Epilepsy Atrial fibrillation Heart murmur Cerebrovascular accident Father Lung cancer Daughter Heart murmur VSD (ventricular septal defect) Son Heart murmur Other Asthma Development delay Social History Social History Smoking status: Never smoker Second hand tobacco smoke exposure: No Alcohol intake: never Substance use: never Lack of Transportation: YES Lack of Food: Never True Current Housing: I Have Housing Concerned About Future Housing: No Difficulty Paying Gas/Electric Bills: No Difficulty Paying for Meds: No Currently Unemployed: No Education: Grade School Difficulty w/ Childcare or Family Care: No Living arrangements: with family Occupation/Education: unemployed Additional occupation/education comments: ON [employer] Gender identity (if verbalized by the patient): Female Sexual Orientation (if Verbalized by the Patient): Straight or Heterosexual Spiritual care concerns: No Exam Narrative: GENERAL: Well-appearing, well-nourished, and in no acute distress. HEAD: Normocephalic, atraumatic. EYES: Non injected, non icteric. No conjunctival pallor. ENT: Nares clear, no rhinorrhea or epistaxis. Speaks with speech impediment but easily understandable. NECK: Supple. CHEST: Speaking in full sentences. No respiratory distress. HEART: Regular rate and rhythm. . ABDOMEN: Soft, nondistended. Non tender to palpation. No rigidity or guarding. EXTREMITIES: Normal range of motion. No edema. SKIN: Warm, dry. Abrasion versus excoriation along right back, approximately posterior to inframammary line, not bleeding, not vesicular. NEURO: No focal deficits.
[2023-10-13 16:31] LABS: Basophils Percent Auto 0.3 % (0.2-1.2); Eosinophils Absolute Auto 0.1 K/mm3 (0-0.3); Eosinophils Percent Auto 0.5 % (0-4.4); Hematocrit 50.5 % (37.0-47.0); Hemoglobin 16.4 g/dL (12.0-15.0); Immature Granulocyte Absolute 0.06 K/mm3 (0.00-0.031); Immature Granulocyte Percent A 0.5 % (0-0.5); Lymphocytes Percent Auto 9.3 % (18.3-44.2); Mean Corpuscular HGB Conc 32.5 g/dl (32-36); Mean Corpuscular Hemoglobin 29.7 pg (26-34); Mean Corpuscular Volume 91.3 fl (80-100); Mean Platelet Volume 10.5 fl (7.4-10.4); Monocytes Absolute Auto 0.6 K/mm3 (0.1-0.6); Monocytes Percent Auto 4.6 % (2.6-8.5); Neutrophils Absolute Auto 10.9 K/mm3 (1.3-6.7); Neutrophils Percent Auto 84.8 % (45.5-73.1); Platelet Count Result 257 k/mm3 (150-375); Red Blood Count 5.53 M/mm3 (4.2-5.4); Red Cell Distribution Width 12.2 % (11.5-14.5); White Blood Count 12.9 K/mm3 (4.5-10.0)
[2023-10-13 16:50] LABS: Alanine Aminotransferase 13 U/L (6-35); Albumin Level 4.7 g/dL (3.5-5.1); Alkaline Phosphatase 114 U/L (38-126); Anion Gap 12 mmol/L (8-16); Aspartate Amino Transferase 26 U/L (14-36); Bilirubin,Total 0.8 mg/dL (0.2-1.3); Blood Urea Nitrogen 13 mg/dL (7-17); Calcium 9.1 mg/dL (8.4-10.2); Carbon Dioxide 23 mmol/L (22-30); Chloride 108 mmol/L (98-107); Estimated CRCL calculation 110 ml/min; Estimated Glomerular Filt Rate > 60; Glucose 97 mg/dL (65-110); Sodium 143 mmol/L (137-145)
[2023-10-13 16:55] LABS: Prothrombin Time 13.6 Seconds (11.1-14.7)
[2023-10-13 16:56] LABS: Partial Thromboplastin Time 32.9 SECONDS (22.3-36.8)
[2023-10-13] MEDS: ACETAMINOPHEN 325 MG TABLET 650 MG PO (17:01)
[2023-10-13 17:06] LABS: Beta HCG Quantitative < 2.39 mIU/ML
[2023-10-13 18:01] VITALS: BP 113/72; PULSE 91; RESP 16; O2SAT 98
[2023-10-13 19:19] VITALS: BP 117/72; PULSE 93; RESP 16; O2SAT 99
== END 2023-10-13 19:20 | disposition home or self-care (01) ==
PROVIDERS: Emergency Medicine; Emergency Provider Student in an Organized Health Care Education/Training Program; PCP Physician Assistant
DX: O72.2 Delayed and secondary postpartum hemorrhage (principal); O99.53 Diseases of the respiratory system complicating the puerperium; J45.909 Unspecified asthma, uncomplicated; O99.893 Other specified diseases and conditions complicating puerperium; M79.7 Fibromyalgia; R62.50 Unspecified lack of expected normal physiological development in childhood; Z90.49 Acquired absence of other specified parts of digestive tract
CPT/HCPCS: 36415; 76856; 80053; 84702; 85025; 85610; 85730; 86850; 86900; 86901; 99284; A9270

== ENCOUNTER 2023-12-09 00:08 | Day surgery (SDC) | payer OTHER, SELFPAY ==
[2023-11-29 14:01] VITALS: BMI 26.7
--- NOTE | 2023-11-29 14:07 | PC.NURSE ---
Report to the Outpatient Waiting Room, entrance under the green pavilion located off [facility], at time 0600 on date 12/09/23. Planned Procedure Time: 0730. Time changes happen often and if your time is changed the preop area will call you the afternoon before. - You and your visitor will be asked to self-screen and do not enter if you have any COVID symptoms. - A mask is optional within the hospital at this time. Patients may have clear liquids (water, carbonated beverages, clear teas, apple juice) until 3 hours prior to surgery with a maximum of 20 ounces. - No food from midnight until time of surgery Take the following medications with a SIP of water the morning of surgery: N/A DO NOT STOP ANY OF YOUR OTHER PRESCRIPTION MEDICATIONS PRIOR TO SURGERY ?EXCEPT THE FOLLOWING Medications to discontinue per physician: N/A Date to take last dose: N/A Please no make-up, nail lithuanian, hairspray, perfume, deodorant, or body powder the day of surgery. No jewelry (including any body piercings) or valuables the day of surgery, leave them at home. Please take a shower or bath the night before, or the morning of, surgery with an antibacterial soap. Wear comfortable, loose fitting clothing. - Jewelry must be removed prior to entering the operating room. Rings and piercings that are not removed may be cut off. - The hospital will not accept responsibility for valuables. - Please leave all valuables, including medications, at home the day of surgery. If you are going home after surgery, a licensed route delivery service driver must drive you home. - NO public transportation without another adult if you receive anesthesia. - We recommend that an adult stay with you for 24 hours following discharge. - We also recommend that you do not drive, make important decision, drink alcoholic beverages, or take any drugs that were not prescribed by your health care provider for at least 24 hours after your discharge time. Follow any additional instructions given to you from your surgeon. If you or anyone in your household have experienced Covid symptoms in the past week, please notify your surgeon or the nurse liaison at the phone number below for possible testing. Telephone instructions given to PT Sai BENTLEY and asked if any additional questions and then verbalized understanding. Patient advised to call surgeon office or pre surgery nurse liaison [phone] if any additional questions.
--- NOTE | 2023-12-07 17:11 | PM.IMHP ---
H&P: HPI History of Present Illness Date/Time: 12/07/23 17:11 23-year-old 3 para 3003 female presents for permanent sterilization. We have discussed the risks benefits, permanence, failure rate, increased risk of ectopic and regret. Also we have discussed at length nonsurgical and nonpermanent control measures which she declines. Chief Complaint: Undesired fertility Review of Systems Review of Systems: All systems reviewed & are unremarkable except as noted in HPI and below PMFSH Past Medical History Medical History Anxiety Asthma Depression Developmental delay, borderline Fibromyalgia 3 para 3 Migraines, neuralgic Spontaneous vaginal delivery 09/27/2023 Surgical History Surgical History H/O eye surgery History of cholecystectomy Family History Family History Mother Epilepsy Atrial fibrillation Heart murmur Cerebrovascular accident Father Lung cancer Daughter Heart murmur VSD (ventricular septal defect) Son Heart murmur Other Asthma Development delay Social History Social History Smoking status: Never smoker Second hand tobacco smoke exposure: No Alcohol intake: never Substance use: never Substance use type: does not use Lack of Transportation: YES Lack of Food: Never True Current Housing: I Have Housing Concerned About Future Housing: No Difficulty Paying Gas/Electric Bills: No Difficulty Paying for Meds: No Currently Unemployed: No Education: Grade School Difficulty w/ Childcare or Family Care: No Living arrangements: with family Occupation/Education: unemployed Additional occupation/education comments: ON [employer] Gender identity (if verbalized by the patient): Female Sexual Orientation (if Verbalized by the Patient): Straight or Heterosexual Spiritual care concerns: No Meds Home Medications and Allergies Home Medications Medication Instructions Recorded Confirmed Type No Home Medications 11/29/23 11/29/23 History Allergies Allergy/AdvReac Type Severity Reaction Status Date / Time Penicillins Allergy Severe Hives Verified 11/29/23 14:00 raspberry AdvReac Rash Verified 11/29/23 14:00 Exam Const: General: cooperative, healthy appearing and comfortable Resp: Effort & Inspection: normal respiratory effort Auscultation: clear to auscultation bilaterally Cardio: Rate: regular rate Rhythm: regular rhythm GI: Inspection: normal to inspection Auscultation: normal bowel sounds : External Female Exam: normal external appearance Speculum Exam - Vagina: normal appearance of the vagina Speculum Exam - Cervix: normal appearance of the cervix Bimanual exam- vagina & uterus: normal bimanual exam Bimanual Exam- Adnexa, other: normal adnexae Assessment and Plan Assessment and plan (1) Encounter for female sterilization procedure: Code(s): Z30.2 - Encounter for sterilization Status: Acute Assessment and Plan: proceed with laparoscopic bilateral salpingectomy
[2023-12-09] VITALS (8 sets, daily range): BP systolic 106–122; BP diastolic 50–86; PULSE 63–100; RESP 16–21; TEMP 36.9; O2SAT 100; BMI 27.1
[2023-12-09] MEDS: KETOROLAC 15 MG/ML VIAL (*BKC) IV PUSH (06:22)
[2023-12-09] MEDS: ACETAMINOPHEN 500 MG TABLET 1000 MG PO (06:22)
[2023-12-09] MEDS: LACTATED RINGERS 1,000 ML 30 ML IV CONT (06:35)
--- NOTE | 2023-12-09 07:12 | WPDANESEPPF ---
Anes - Initial Pre Proc Eval Procedure: Operation Date: 12/09/23 07:30 Proposed Procedures p Bilateral Laparoscopic Salpingectomy - Endy Sanchez MD Date/Time: 12/09/23 07:12 Surgeon: Endy Sanchez MD Pre Op Diagnosis: desired sterilization Patient Data Age: 23 Gender: F Height: 1.65 m Weight: 73 kg Allergies Allergy/AdvReac Type Severity Reaction Status Date / Time Penicillins Allergy Severe Hives Verified 11/29/23 14:00 raspberry AdvReac Rash Verified 11/29/23 14:00 Home Medications Medication Instructions Recorded Confirmed Type No Home Medications 11/29/23 11/29/23 History Patient hx anesthesia problems: none Family hx anesthesia problems: none Results Review: All pre-operative results and documents have been reviewed as part of the pre-operative evaluation. [facility] Past Medical History Medical History Anxiety Asthma Depression Developmental delay, borderline Fibromyalgia 3 para 3 Migraines, neuralgic Spontaneous vaginal delivery 09/27/2023 Surgical History Surgical History H/O eye surgery History of cholecystectomy Family History Family History Mother Epilepsy Atrial fibrillation Heart murmur Cerebrovascular accident Father Lung cancer Daughter Heart murmur VSD (ventricular septal defect) Son Heart murmur Other Asthma Development delay Social History Social History Smoking status: Never smoker Second hand tobacco smoke exposure: No Alcohol intake: never Substance use: never Substance use type: does not use Lack of Transportation: YES Lack of Food: Never True Current Housing: I Have Housing Concerned About Future Housing: No Difficulty Paying Gas/Electric Bills: No Difficulty Paying for Meds: No Currently Unemployed: No Education: Grade School Difficulty w/ Childcare or Family Care: No Living arrangements: with family Occupation/Education: unemployed Additional occupation/education comments: [employer] Gender identity (if verbalized by the patient): Female Sexual Orientation (if Verbalized by the Patient): Straight or Heterosexual Spiritual care concerns: No Anes - Eval Final PreProcedure Day of Procedure 12/09/23 07:12 Patient weight: normal Heart: regular rate and rhythm Lungs: clear to auscultation Airway: Mallampati scale class II Neurological: alert and oriented Last oral intake: >/= 8 hours ASA classification: II Emergent: no Anesthetic plan: proceed Anesthesia type and monitoring: general ETT and standard monitoring Results Review: All pre-operative results and documents have been reviewed as part of the pre-operative evaluation. Informed Consent: The patient's anesthetic plan and its attendant risks and benefits were discussed with the patient/family/POA. Questions were solicited and answers provided to the satisfaction of the patient/family/POA.
--- NOTE | 2023-12-09 07:17 | WPDHPUPDATE1 ---
History and Physical Update Update Date/Time: 12/09/23 07:17 History and Physical has been reviewed, including an updated exam of the patient. There are NO changes in the patient's condition. Risks, benefits, and alternatives have been discussed and questions answered. Patient agrees to proceed with procedure.
--- NOTE | 2023-12-09 08:09 | W.PM.PROC2 ---
Procedure Note - Detailed Date of Procedure 12/09/23 Pre-op Diagnosis desired sterilization Post-op Diagnosis Same Procedure Performed Bilateral laparoscopic salpingectomy Surgeon Endy Sanchez MD Anesthesia General Findings Uterus tubes ovaries that abnormality Description of Procedure Patient prepped draped in usual manner for this procedure. Cervical instruments were placed for uterine mobility throughout the case. Attention then placed the abdomen in 3 trocars were placed under direct visualization. Using the Harmonic scalpel on the mesial salpinx both tubes were removed without difficulty. There was some oozing from the right cornual area which was rendered hemostatic with the Harmonic scalpel. Gas was allowed to escape and area of oozing was again inspected and was hemostatic. Trocars removed and incisions approximated using 4-0 Monocryl. Patient was then sent to recovery room in stable condition. Estimated Blood Loss 50 Drains No Packing No Pathology Yes Complications No immediate complications Condition Stable Disposition PACU [facility] Billing Surgery - Charge Forward: Surgery Billing
[2023-12-09] MEDS: fentaNYL CITRATE INJ (*CRX) 100 MCG/2 ML VIAL 25 MCG IV PUSH ×4 (08:39→09:00)
--- NOTE | 2023-12-09 08:52 | SUR.PHASEI ---
0847: Simple mask removed.
[2023-12-09] MEDS: oxyCODONE HCL (*CRX) 5 MG TAB IR PO (09:41)
== END 2023-12-09 10:15 | disposition home or self-care (01) ==
PROVIDERS: PCP Physician Assistant; Visit Provider Obstetrics & Gynecology
PROC: (CPT 49320; principal; 2023-12-09 07:30)
DX: Z30.2 Encounter for sterilization (principal); N83.8 Other noninflammatory disorders of ovary, fallopian tube and broad ligament; F41.9 Anxiety disorder, unspecified; J45.909 Unspecified asthma, uncomplicated; Z90.49 Acquired absence of other specified parts of digestive tract; Z82.49 Family history of ischemic heart disease and other diseases of the circulatory system; Z80.1 Family history of malignant neoplasm of trachea, bronchus and lung
CPT/HCPCS: 58661; 88302; A9270; J1100; J1885; J2250; J2405; J2710; J3010; J7120